=== PATIENT | female | born 1995 | race Caucasian/White ===

== ENCOUNTER 2021-11-18 10:07 | Emergency (ER) | payer OTHER, SELFPAY ==
--- NOTE | ~2021-11-18 | CT_ITS ---
EXAMINATION: CT abdomen pelvis w con DATE: 11/18/2021 11:27 INDICATION: Right lower quadrant abdominal pain TECHNIQUE: Computed tomography (CT) of the abdomen and pelvis was performed with 100 CC Omnipaque 300 intravenous contrast. Automated exposure control and iterative reconstruction technique were employe d. Exam dose: 938.46 mGy-cm total exam DLP. COMPARISON: None. FINDINGS: The lung bases are clear. Normal heart size. No pericardial or pleural effusion. The liver, gallbladder, bile ducts, pancreas, pancreatic duct and spleen appear normal. Normal morphology of the adrenal glands. No renal mass lesion or urinary tract calculus or hydroureteronephrosis is evident. The urinary blad cindy, uterus and adnexal areas are unremarkable. Normal appendix. No bowel obstruction or intraperitoneal free air. Normal caliber of the abdominal aorta. No intraperitoneal or retroperitoneal or pelvic mass lesion or adenopathy or ascites. Small fat-containing umbilical hernia. Included skeletal structures are unremarkable. IMPRESSION: Normal appendix Reviewed, dictated and finalized at [facility]. Reviewed, dictated and finalized at [facility]. IMPRESSION: Normal appendix
[2021-11-18 10:10] VITALS: BP 132/87; PULSE 75; RESP 18; TEMP 36.4; O2SAT 99
--- NOTE | 2021-11-18 10:26 | ED.FEMALEGU ---
HPI - Female Genitourinary General Chief complaint: Unspecified Stated complaint: abnormal bleeding - testing Time Seen by Provider: 11/18/21 10:17 History of Present Illness HPI Narrative: 25-year-old female presents the emergency room for evaluation of abdominal pain. States last week she was drinking heavily and experience nausea and vomiting following that. Over the weekend she started her menses which lasted only 2 days. Patient was concerned due to the lack of duration of her menstrual cycle. Patient was also experiencing some right lower quadrant stabbing pain yesterday that has since resolved. Presently patient does not have any complaints, and is wanting to know why she was having all of these symptoms last week. Patient also reports having unprotected sex with a new partner and is concerned she may have an STD. Denies dysuria or denies a vaginal discharge. Denies fever. Related Data Allergies Allergy/AdvReac Type Severity Reaction Status Date / Time ibuprofen AdvReac Other Verified 11/18/21 10:20 Review of Systems Review of Systems: CONSTITUTIONAL: Denies fever, chills, or sweats. EYES: Denies visual changes, redness, or discharge. ENT: Denies rhinorrhea, congestion, sore throat, or otalgia. CARDIOVASCULAR: Denies chest pain, palpitations, or edema. RESPIRATORY: Denies cough or dyspnea. GASTROINTESTINAL: Reports right lower quadrant pain GENITOURINARY: Denies dysuria or hematuria. SKIN: Denies rash or itching. MUSCULOSKELETAL: Denies back pain, joint pain, or myalgia. NEUROLOGIC: Denies headache, numbness, dizziness, or weakness. PSYCHIATRIC: Denies anxiety or depression. Exam Narrative: GENERAL: Well-appearing, well-nourished, no physical limitations, and in no acute distress. HEAD: Normocephalic, atraumatic. EYES: Conjunctivae normal, PERRLA and EOMI. CHEST: Clear to auscultation. No respiratory distress. No wheezes rales or rhonchi. No tenderness. HEART: Regular rate and rhythm. No murmur heard. Normal peripheral pulses. ABDOMEN: Soft, right lower quadrant/pelvic tenderness, nondistended, normal active bowel sounds. : BACK: No CVA tenderness; No cervical/thoracic/lumbar tenderness, step-offs, bony abnormality; FROM EXTREMITIES: Normal range of motion. No edema. No clubbing or cyanosis SKIN: Warm, dry, no rash. No noted wounds NEURO: No focal deficits. Alert and oriented x3. MAEW. CN's II-XI intact bilaterally, normal gait PSYCH: Cooperative. Normal mood and affect. Course Vital Signs Vital signs: Vital Signs Temperature 36.4 C 11/18/21 10:10 Pulse Rate 75 11/18/21 10:10 Respiratory Rate 18 11/18/21 10:10 Blood Pressure 132/87 11/18/21 10:10 Pulse Oximetry 99 11/18/21 10:10 Oxygen Delivery Room Air 11/18/21 10:10 Temperature 36.4 C 11/18/21 10:10 Pulse Rate 75 11/18/21 10:10 Respiratory Rate 18 11/18/21 10:10 Blood Pressure 132/87 11/18/21 10:10 Pulse Oximetry 99 11/18/21 10:10 Oxygen Delivery Room Air 11/18/21 10:10 MDM - Female Genitourinary MDM Narrative Medical decision making narrative: 25-year-old female presenting with lower abdominal/pelvic pain. Exam is without any peritoneal findings. No evidence of acute abdomen. Patient is nontoxic-appearing. Work-up shows low suspicion for hepatobiliary disease, pancreatitis or any other infectious process. Urine showed small number of leukocytes, which could be early urinary tract infection or STD. Patient will be treated for gonorrhea chlamydia and a urinary tract infection. Her presentations not consistent with any acute emergent cause of abdominal pain at this time and will have patient follow-up with primary care physician in 1 to 2 weeks. Lab Data Result diagrams: 11/18/21 10:59 11/18/21 10:59 Labs: Lab Results 11/18/21 11/18/21 11/18/21 Range/Units 10:57 10:59 10:59 WBC 6.8 (4.5-10.0) K/mm3 RBC 4.10 L (4.2-5.4) M/mm3 Hgb 13.5 (12.0-1
[2021-11-18] MEDS: SODIUM CHLORIDE 0.9% IV 1,000 ML 999 ML IV CONT (11:03)
[2021-11-18 11:04] LABS: Basophils Absolute Auto 0.1 K/mm3 (0.0-0.1); Basophils Percent Auto 0.7 % (0.2-1.2); Eosinophils Absolute Auto 0.2 K/mm3 (0-0.3); Eosinophils Percent Auto 3.1 % (0-4.4); Hematocrit 39.2 % (37.0-47.0); Hemoglobin 13.5 g/dL (12.0-15.0); Immature Granulocyte Absolute 0.03 K/mm3 (0.00-0.031); Immature Granulocyte Percent A 0.4 % (0-0.5); Lymphocytes Absolute Auto 2.54 K/mm3 (0.9-3.2); Lymphocytes Percent Auto 37.2 % (18.3-44.2); Mean Corpuscular HGB Conc 34.4 g/dl (32-36); Mean Corpuscular Hemoglobin 32.9 pg (26-34); Mean Corpuscular Volume 95.6 fl (80-100); Mean Platelet Volume 8.7 fl (7.4-10.4); Monocytes Absolute Auto 0.4 K/mm3 (0.1-0.6); Monocytes Percent Auto 6.3 % (2.6-8.5); Neutrophils Absolute Auto 3.6 K/mm3 (1.3-6.7); Neutrophils Percent Auto 52.3 % (45.5-73.1); Platelet Count Result 242 k/mm3 (150-375); Red Cell Distribution Width 12.6 % (11.5-14.5); White Blood Count 6.8 K/mm3 (4.5-10.0)
[2021-11-18 11:06] LABS: Appearance Urine Cloudy (Clear); Bilirubin Urine Negative (Negative); Blood Urine 1+ (Negative); Color Urine Yellow (Yellow); Glucose Urine UA Negative (Negative); Ketones Urine Negative (Negative); Leukocyte Esterase Ur 1+ LEU/UL (Negative); Nitrate Urine Negative (Negative); Protein Urine Negative (Negative); Urobilinogen Urine 0.2 mg/dL (<2.0); pH Urine 6.5 (5.0-9.0)
[2021-11-18 11:15] LABS: Bacteria Urine Trace /hpf; Mucus Urine Rare /lpf; Squamous Epithelial Cell Urine Many /hpf (Few)
[2021-11-18 11:15] LABS: Alanine Aminotransferase 18 U/L (6-35); Albumin Level 4.3 g/dL (3.5-5.1); Alkaline Phosphatase 57 U/L (38-126); Anion Gap 5 mmol/L (8-16); Aspartate Amino Transferase 20 U/L (14-36); Bilirubin,Total 0.4 mg/dL (0.2-1.3); Blood Urea Nitrogen 11 mg/dL (7-17); Carbon Dioxide 26 mmol/L (22-30); Chloride 108 mmol/L (98-107); Estimated CRCL calculation 124 ml/min; Estimated Glomerular Filt Rate > 60; Glucose 120 mg/dL (65-110); Lipase 71 U/L (23-300); Sodium 139 mmol/L (137-145)
[2021-11-18 11:18] LABS: Add Urine Microscopic? YES
--- NOTE | 2021-11-18 11:18 | PC.NURSE ---
pt to CT at this time.
[2021-11-18 11:53] VITALS: PULSE 73; RESP 17; O2SAT 100
[2021-11-18 11:56] VITALS: BP 142/94
[2021-11-18] MEDS: AZITHROMYCIN 250 MG TABLET 1000 MG PO (12:01)
== END 2021-11-18 12:49 | disposition home or self-care (01) ==
PROVIDERS: Emergency Provider Nurse Practitioner Family
DX: R10.31 Right lower quadrant pain (principal)
CPT/HCPCS: 36415; 74177; 80053; 81001; 81025; 83690; 85025; 87070; 87491; 87591; 87808; 96361; 96365; 99284; A9270; J0696; J7030; Q9967